=== PATIENT | male | born 1945 | race Caucasian/White ===

== ENCOUNTER → 2023-04-12 | Outpatient (REF) | payer BC, OTHER, MEDICARE ==
[2023-04-12 17:20] LABS: INR 0.94; PARTIAL THROMBOPLASTIN TIME 28.4 SECONDS (24.8-34.2); PROTHROMBIN TIME 12.3 SECONDS (12.5-14.5)
== END ==
LOC: M LAB REF 16:42
PROVIDERS: ATTEND Internal Medicine Pulmonary Disease
DX: Z01.812 Encounter for preprocedural laboratory examination (principal)

== ENCOUNTER 2023-05-24 07:54 | Day surgery (SDC) | payer MEDICARE, BC ==
[~2023-05-24] VITALS: Ht 177.8 cm; Wt 72.8 kg
[~2023-05-24 07:54] MED LIST: ALBU8.5H; ASPI81TA26 PO; CLOP75TA2 PO; ROSU40TA4 PO; TRAZ-189 PO; TREL1AER; zquil PO
[2023-05-24] MEDS ORDERED: fentaNYL 100 MCG/2 ML INJECTION As Ordered ONE (09:14)
[2023-05-24] MEDS ORDERED: ROCURONIUM BROMIDE 50MG/5ML VIAL As Ordered ONE (09:15)
[2023-05-24] MEDS ORDERED: propofoL 200 MG/20 ML VIAL As Ordered ONE (09:15)
[2023-05-24] MEDS ORDERED: ONDANSETRON 4MG 2ML VIAL As Ordered ONE (09:15)
[2023-05-24] MEDS ORDERED: LIDOCAINE 2% 100MG/5ML SDV (FOR ANES.) As Ordered ONE (09:15)
[2023-05-24] MEDS ORDERED: MIDAZOLAM INJ 2MG/2ML VIAL As Ordered ONE (09:15)
[2023-05-24] MEDS ORDERED: dexmedeTOMIDine (4MCG/ML)200MCG/50ML BTL (PRECEDEX) As Ordered ONE (09:19)
[2023-05-24] MEDS: LR 1,000 ML IV SCH (09:50)
[2023-05-24] MEDS ORDERED: ETOMIDATE INJ 20MG/10ML VIAL As Ordered ONE (10:16)
[2023-05-24] MEDS: CETACAINE SPRAY 5GM As Ordered ONE (10:30)
[2023-05-24] MEDS ORDERED: PHENYLephrine 500MCG 5ML (100MCG/ML) SYRINGE As Ordered ONE (10:31)
[2023-05-24] MEDS ORDERED: ACETAMINOPHEN 1000MG 100ML IV BAG As Ordered ONE (10:31)
[2023-05-24] MEDS ORDERED: SUGAMMADEX SODIUM 500 MG/5 ML VIAL (BRIDION) As Ordered ONE (10:34)
[2023-05-24] MEDS: EPINEPHrine 1MG/10ML SYRINGE 1.5IN As Ordered ONE (10:50)
[2023-05-24] MEDS ORDERED: ONDANSETRON 4MG 2ML VIAL IV PRN (11:15)
[2023-05-24] MEDS ORDERED: LR 1,000 ML IV SCH (11:15)
[2023-05-24] MEDS ORDERED: oxyCODONE 5MG TAB PO PRN (11:15)
[2023-05-24] MEDS ORDERED: fentaNYL 100 MCG/2 ML INJECTION IV PRN (11:15)
[2023-05-24 11:45] VITALS: BP 106/56; TEMP 97.5; O2SAT 94
== END 2023-05-24 12:06 | disposition home or self-care (01) ==
LOC: M SDC 07:54
PROVIDERS: ATTEND Internal Medicine Pulmonary Disease
DX: R59.0 Localized enlarged lymph nodes (principal); J44.9 Chronic obstructive pulmonary disease, unspecified; C82.90 Follicular lymphoma, unspecified, unspecified site; I10 Essential (primary) hypertension; E78.00 Pure hypercholesterolemia, unspecified; I25.2 Old myocardial infarction; Z79.899 Other long term (current) drug therapy; Z92.3 Personal history of irradiation; Z92.21 Personal history of antineoplastic chemotherapy; Z79.82 Long term (current) use of aspirin; Z79.51 Long term (current) use of inhaled steroids
CPT/HCPCS: 31652; 71045; 88173; 88305; J0131; J1100; J2250; J2371; J2405; J3010